=== PATIENT | male | born 1995 | race Caucasian/White ===

== ENCOUNTER 2016-09-26 03:53 | Emergency (ER) | payer OTHER ==
[~2016-09-26] VITALS: Ht 154.9 cm; Wt 68.0 kg
[2016-09-26 03:57] VITALS: Ht 154.9 cm; Wt 68.0 kg
[2016-09-26] MEDS ORDERED: ONDANSETRON 4 MG INJ IV STA (06:35)
[2016-09-26] MEDS ORDERED: ACETAMINOPHEN 325 MG TAB PO ONE (07:00)
[2016-09-26] MEDS ORDERED: ONDANSETRON (ODT) 4 MG TAB ODT STA (07:08)
--- NOTE | 2016-09-26 07:20 | RADRPT ---
PROCEDURE: US OB. CLINICAL INDICATION: Vaginal bleeding status post miscarriage. TECHNIQUE: Transabdominal imaging of the uterus is available for review. The patient refused endo vaginal imaging COMPARISON: None available FINDINGS: No intrauterine is identified. The endometrial stripe is heterogeneous and measures 11 mm in thickness. The uterus is otherwise unremarkable. The ovaries are unremarkable. No adnexal mas s is identified. No free fluid is noted within the pelvis. IMPRESSION: Limited evaluation. The patient refused endovaginal imaging. The endometrium is thickened measurin g 11 mm in diameter and heterogeneous. Correlation with Beta HCG is recommended to exclude retained products of conception. RPTAT: HH .Vivien Overton MD, MD Date Time Electronically viewed and signed by .Vivien Overton MD, on 09/26/2016 07:20 .G/
[2016-09-26 07:38] LABS: ADD SCAN DIFF NO
[2016-09-26 07:42] LABS: BASOPHILS % 0.3 % (0.0-2.0); EOSINOPHILS % 0.3 % (0.0-7.0); HEMATOCRIT 40.6 % (42.0-52.0); HEMOGLOBIN 13.4 g/dl (14.0-18.0); LYMPHOCYTES # 1.8 10^3/ul (0.8-2.9); LYMPHOCYTES % 28.2 % (15.0-51.0); MEAN CORPUSCULAR HEMOGLOBIN 31.2 pg (29.0-33.0); MEAN CORPUSCULAR VOLUME 94.4 fl (82.0-101.0); MEAN PLATELET VOLUME 8.4 fl (7.4-10.4); MONOCYTE # 0.3 10^3/ul (0.3-0.9); MONOCYTES % 5.2 % (0.0-11.0); NEUTROPHIL # 4.2 10^3/ul (1.6-7.5); NEUTROPHILS % 65.7 % (39.0-77.0); PLATELET COUNT 373 10^3/UL (140-415); RED CELL DISTRIBUTION WIDTH 12.6 % (11.5-14.5); WHITE BLOOD COUNT 6.4 10^3/ul (4.8-10.8)
[2016-09-26 07:45] LABS: ADD UMIC YES; URINE BILIRUBIN (Dip) NEGATIVE (NEGATIVE); URINE BLOOD (Dip) 3+ (NEGATIVE); URINE COLOR LT. YELLOW (YELLOW); URINE GLUCOSE (Dip) NEGATIVE (NEGATIVE); URINE KETONES (Dip) NEGATIVE (NEGATIVE); URINE LEUKOCYTE ESTERASE (Dip) NEGATIVE (NEGATIVE); URINE NITRITE (Dip) NEGATIVE (NEGATIVE); URINE TOTAL PROTEIN (Dip) NEGATIVE (NEGATIVE); URINE UROBILINOGEN (Dip) 0.2 E.U./dL (0.1-1.0)
[2016-09-26 08:08] LABS: BACTERIA,URINE RARE; URINE RBCS 0-2 /HPF (0)
[2016-09-26] MEDS ORDERED: ONDA4TAB8 PO (08:33)
[2016-09-26] MEDS ORDERED: IBUP-1542 PO (08:33)
--- NOTE | 2016-09-26 11:45 | ERD ---
ER Documentation Chief Complaint Date/Time DATE: 09/26/16 TIME: 11:36 Chief Complaint PELVIC PAIN AND VAG BLEED HAD A MISCARRIAGE 2 DAYS AGO HPI This is a 20-year-old female accompanied by her , presented with abdominal pain and vaginal bleeding for 2 weeks. Patient is , states that she had a miscarriage 2 days ago at home while she was on her eighth week of gestation. Patient stated she was able to visualize the tissue during the miscarriage. Patient then went to [facility]. Patient did not bring any hospital records on this ED visit. She reports of vaginal bleeding of 1 pad per day. Patient also complains of nausea and dysuria. No recent history of fever, headache, chest pain, shortness of breath or bowel symptoms. Patient is currently taking [place] for abdominal pain, last dose was yesterday. ROS All systems reviewed and are negative except as per history of present illness. Medications Home Meds Active Scripts Ibuprofen* (Motrin*) 600 Mg Tab, 600 MG PO Q6H Y for PAIN AND OR ELEVATED TEMP, #30 TAB Prov:RAJIV METZ 09/26/16 Ondansetron Hcl* (Zofran*) 4 Mg Tablet, 4 MG PO Q6H for NAUSEA AND/OR VOMITING, #30 TAB Prov:RAJIV METZ 09/26/16 Allergies Allergies: Coded Allergies: No Known Allergy (Unverified , 09/26/16) PMhx/Soc History of Surgery: No Anesthesia Reaction: No Hx Neurological Disorder: No Hx Respiratory Disorders: No Hx Cardiac Disorders: No Hx Psychiatric Problems: No Hx Alcohol Use: Yes (WEEKENDS) Hx Substance Use: No Smoking Status: Never smoker Physical Exam Vitals Vital Signs Date Time Temp Pulse Resp B/P Pulse Ox O2 Delivery O2 Flow Rate FiO2 09/26/16 03:57 97.7 78 20 109/68 100 Physical Exam Physical Exam CONST: Well-developed, well-nourished, in no acute distress. Nontoxic in appearance. HEENT: Atraumatic. Normal conjunctiva. EOM intact. TM intact. External ear is normal. Clear oropharnyx without erythema. No uvular deviation. Moist mucous membranes. Supple neck. No meningismus. No submandibular induration. RESP: Clear to auscultation bilaterally. No wheezing. CARDIO: Regular rate and rhythm, no murmurs. ABD: Lower abdominal tenderness. Soft, non distended. Normal bowel sounds. No McBurney's point tenderness. No guarding or rigidity. No peritoneal signs. SKIN: No petechiae or rashes. BACK: No midline or flank tenderness. EXT: No cyanosis or edema. Distal pulses equal and bilateral. NEURO: Awake and alert, appropriate for age. Result Diagram: 09/26/16 0714 Results 24 hrs Laboratory Tests Test 09/26/16 07:07 09/26/16 07:14 Urine Color LT. YELLOW Urine Clarity CLEAR Urine pH 5.5 Urine Specific [place] 1.015 Urine Ketones NEGATIVE Urine Nitrite NEGATIVE Urine Bilirubin NEGATIVE Urine Urobilinogen 0.2 E.U./dL Urine Leukocyte Esterase NEGATIVE Urine Microscopic RBC 0-2/HPF Urine Microscopic WBC 0-2/HPF Urine Epithelial Cells FEW Urine Bacteria RARE Urine Hemoglobin 3+ Urine Glucose NEGATIVE% Urine Total Protein NEGATIVE White Blood Count 6.410^3/ul Red Blood Count 4.3010^6/ul Hemoglobin 13.4g/dl Hematocrit 40.6% Mean Corpuscular Volume 94.4fl Mean Corpuscular Hemoglobin 31.2pg Mean Corpuscular Hemoglobin Concent 33.0g/dl Red Cell Distribution Width 12.6% Platelet Count 66181^3/UL Mean Platelet Volume 8.4fl Neutrophils % 65.7% Lymphocytes % 28.2% Monocytes % 5.2% Eosinophils % 0.3% Basophils % 0.3% Nucleated Red Blood Cells % 0.0/100WBC Neutrophils # 4.210^3/ul Lymphocytes # 1.810^3/ul Monocytes # 0.310^3/ul Eosinophils # 0.010^3/ul Basophils # 0.010^3/ul Nucleated Red Blood Cells # 0.010^3/ul Beta HCG, Quantitative 382.2mIU/ml Current Medications Medications (Trade) Dose Ordered Sig/Alonzo Route PRN Reason Start Time Stop Time Status Last Admin Dose Admin Ondansetron HCl (Zofran Inj) 4 mg ONCE STAT IV 09/26/16 06:35 09/26/16 07:09 DC Acetaminophen (Tylenol Tab) 650 mg ONCE ONCE PO 09/26/16 07:00 09/26/16 07:01 DC 09/26/16 07:12 Ondansetron HCl (Zofran Odt) 4 mg ONCE STAT ODT 09/26/16 07:08 09/26/16 07:09 DC 09/26/16 07:14 PROCEDURE: US OB. CLINICAL INDICATION: Vaginal bleeding status post miscarriage. TECHNIQUE: Transabdominal imaging of the uterus is available for review. The patient refused endovaginal imaging COMPARISON: None available FINDINGS: No intrauterine is identified. The endometrial stripe is heterogeneous and measures 11 mm in thickness. The uterus is otherwise unremarkable. The ovaries are unremarkable. No adnexal mass is identified. No free fluid is noted within the pelvis. IMPRESSION: Limited evaluation. The patient refused endovaginal imaging. The endometrium is thickened measuring 11 mm in diameter and heterogeneous. Correlation with Beta HCG is recommended to exclude retained products of conception. Procedures/MDM EMERGENCY DEPARTMENT COURSE/MEDICAL DECISION MAKING This is a 20-year-old female who comes to the emergency room secondary to complaints of lower abdominal pain and vaginal bleeding status post miscarriage 2 days ago. The patient was given Tylenol and Zofran in the department. On re-evaluation, the patient's symptoms improved. OB ultrasound was done and was interpreted by a radiologist. Results are limited because patient refused endovaginal imaging. The endometrium is thickened measuring 11 mm in diameter and heterogeneous. Hemoglobin and hematocrit levels are stable and patient does not require any blood transfusion. Beta hCG is 282.2, patient does not have any baseline level on record. Case was discussed with Dr. Graves and we agreed to discharge patient home and return in 2 days for a repeat beta hCG level. My primary diagnosis is vaginal bleeding. Secondary diagnosis is nausea Differential diagnoses considered but not limited to acute appendicitis, diverticulitis, pancreatitis, cholecystitis, gastritis, pyelonephritis, UTI, constipation, inflammatory bowel disease, ectopic , ovarian torsion. Pt is hemodynamically stable upon reassessment. The patient was discharged for outpatient management with a prescription for ibuprofen and Zofran. The patient was advised to followup with their PMD in 1-2 days and to return to the Emergency Department if there are any new or worsening symptoms. The patient understood and agreed with the diagnosis, treatment and plan. Patient is stable for discharge at this time. Departure Diagnosis: Primary Impression: Vaginal bleeding Additional Impression: Nausea Condition: Stable Patient Instructions: Vaginal Bleed in Referrals: COMMUNITY CLINICS YOU HAVE RECEIVED A MEDICAL SCREENING EXAM AND THE RESULTS INDICATE THAT YOU DO NOT HAVE A CONDITION THAT REQUIRES URGENT TREATMENT IN THE EMERGENCY DEPARTMENT. FURTHER EVALUATION AND TREATMENT OF YOUR CONDITION CAN WAIT UNTIL YOU ARE SEEN IN YOUR DOCTORS OFFICE WITHIN THE NEXT 1-2 DAYS. IT IS YOUR RESPONSIBILITY TO MAKE AN APPOINTMENT FOR FOLOW-UP CARE. IF YOU HAVE A PRIMARY DOCTOR --you should call your primary doctor and schedule an appointment IF YOU DO NOT HAVE A PRIMARY DOCTOR YOU CAN CALL OUR PHYSICIAN REFERRAL HOTLINE AT IF YOU CAN NOT AFFORD TO SEE A PHYSICIAN YOU CAN CHOSE FROM THE FOLLOWING [facility] [address] [facility] [address] [facility]. [facility] [address] [facility] [address] [facility] [facility] [address] [facility] [facility] [address] [facility]. [facility] YOU HAVE RECEIVED A MEDICAL SCREENING EXAM AND THE RESULTS INDICATE THAT YOU DO NOT HAVE A CONDITION THAT REQUIRES URGENT TREATMENT IN THE EMERGENCY DEPARTMENT. FURTHER EVALUATION AND TREATMENT OF YOUR CONDITION CAN WAIT UNTIL YOU ARE SEEN IN YOUR DOCTORS OFFICE WITHIN THE NEXT 1-2 DAYS. IT IS YOUR RESPONSIBILITY TO MAKE AN APPOINTMENT FOR FOLOW-UP CARE. IF YOU HAVE A PRIMARY DOCTOR --you should call your primary doctor and schedule and appointment IF YOU DO NOT HAVE A PRIMARY DOCTOR YOU CAN CALL OUR PHYSICIAN REFERRAL HOTLINE AT . IF YOU CAN NOT AFFORD TO SEE A PHYSICIAN YOU CAN CHOSE FROM THE FOLLOWING PENDING SALE TO [facility]: [facility] [address] [place] [address] [facility] [address] [place] [address] [facility] [address] [place] [address] [employer] [place] [address] [facility] [address] [place] [address] OFFICE FAX [facility] [address] [place] [phone] SUGGS, [place] [address] [place] [address] [address] GONZALEZ, [facility] [address], [facility] [address] [address]ORRES, [facility] [address] [facility] [place] [address] [facility] [address] [place] [address] [address] [facility] [id number] [address] [facility] [address] [address]ARCUS, [facility] [address] [facility]. [address], [facility] [address] [address] [facility] [address] [place], [place] [id number] Additional Instructions: Return in 2 days for beta hCG recheck. Call your primary care doctor tomorrow for an appointment during the next 1-2 days. Return to the emergency department immediately should you have any new or worsening symptoms. Take all medications as directed. RAJIV METZ Sep 26, 2016 11:45
== END 2016-09-26 08:53 | disposition home or self-care (01) ==
LOC: FTE 03:53
DX: N93.9 Abnormal uterine and vaginal bleeding, unspecified (principal); R11.0 Nausea; R10.2 Pelvic and perineal pain
CPT/HCPCS: 36415; 76801; 81001; 81003; 84702; 85025; 86900; 86901; Z7502; Z7610; J2405

== ENCOUNTER 2017-03-08 10:53 | Emergency (ER) | payer OTHER ==
[~2017-03-08] VITALS: Ht 157.5 cm; Wt 70.0 kg
[~2017-03-08 10:53] MED LIST: IBUP-1542 PO; ONDA4TAB8 PO
[2017-03-08 10:55] VITALS: Ht 157.5 cm; Wt 70.0 kg
[2017-03-08] MEDS ORDERED: ONDANSETRON (ODT) 4 MG TAB ODT STA (11:18)
[2017-03-08] MEDS ORDERED: RANITIDINE 150 MG TAB PO ONE (11:30)
[2017-03-08] MEDS ORDERED: LIDOCAINE/MYLANTA 40 ML BTL PO ONE (11:30)
[2017-03-08] MEDS ORDERED: OMEP20CA16 PO (11:50)
[2017-03-08] MEDS ORDERED: ONDA4TAB14 PO (11:50)
[2017-03-08] MEDS ORDERED: RANI150T9 PO (11:51)
--- NOTE | 2017-03-08 12:10 | ERD ---
ER Documentation Chief Complaint Date/Time DATE: 03/08/17 TIME: 12:05 Chief Complaint Complains of abdominal pain x 3 days HPI This patient is a 21-year-old female presenting to the emergency department with complaints of abdominal cramping intermittently for the past 2 days. She states that when the cramps come they last for about 5 minutes and then resolve spontaneously. She states it may be related to her menstrual cycle. She reports diffuse cramping slightly worse in the midepigastric area. She does state she feels a burning sensation that travels up her esophagus and is associated with nausea but she has not vomited. Symptoms are worse with fatty foods. She has had similar symptoms in the past. She denies vomiting, diarrhea , dizziness, fever, chills, urinary symptoms, or other symptoms at this time. ROS All systems reviewed and are negative except as per history of present illness. Medications Home Meds Active Scripts Ranitidine Hcl* (Zantac*) 150 Mg Tablet, 150 MG PO BID Y for EPIGASTRIC PAIN, # 30 TAB Prov:MARA JOLLEY PA-C 03/08/17 Omeprazole* (Omeprazole*) 20 Mg Capsule.dr, 20 MG PO DAILY, #14 Prov:MARA JOLLEY PA-C 03/08/17 Ondansetron (Ondansetron Odt) 4 Mg Tab.rapdis, 4 MG PO Q6H Y for NAUSEA AND/OR VOMITING, #10 TAB Prov:MARA JOLLEY PA-C 03/08/17 Ibuprofen* (Motrin*) 600 Mg Tab, 600 MG PO Q6H Y for PAIN AND OR ELEVATED TEMP, #30 TAB Prov:RAJIV METZ 09/26/16 Ondansetron Hcl* (Zofran*) 4 Mg Tablet, 4 MG PO Q6H for NAUSEA AND/OR VOMITING, #30 TAB Prov:RAJIV METZ 09/26/16 Allergies Allergies: Coded Allergies: No Known Allergy (Unverified , 09/26/16) PMhx/Soc Medical and Surgical Hx: pt denies Medical Hx, pt denies Surgical Hx History of Surgery: No Anesthesia Reaction: No Hx Neurological Disorder: No Hx Respiratory Disorders: No Hx Cardiac Disorders: No Hx Psychiatric Problems: No Hx Alcohol Use: Yes (WEEKENDS socially) Hx Substance Use: No Hx Tobacco Use: No Smoking Status: Never smoker Physical Exam Vitals Vital Signs Date Time Temp Pulse Resp B/P Pulse Ox O2 Delivery O2 Flow Rate FiO2 03/08/17 10:55 98.6 89 20 132/73 98 Physical Exam Const: Nontoxic, well-appearing female in no acute distress Head: Atraumatic Eyes: Normal Conjunctiva ENT: Normal External Ears, Nose and Mouth. Neck: Full range of motion..~ No meningismus. Resp: Clear to auscultation bilaterally Cardio: Regular rate and rhythm, no murmurs Abd: Soft, non tender, non distended. Normal bowel sounds. No signs of gross peritonitis. Negative McBurney's point tenderness. Negative Nye sign. No rebound tenderness or guarding noted. Skin: No petechiae or rashes Back: No midline or flank tenderness Ext: No cyanosis, or edema Neur: Awake and alert Psych: Normal Mood and Affect Results 24 hrs Current Medications Medications (Trade) Dose Ordered Sig/Alonzo Route PRN Reason Start Time Stop Time Status Last Admin Dose Admin Miscellaneous Medication (Gi Cocktail (2)) 40 ml ONCE ONCE PO 03/08/17 11:30 03/08/17 11:31 DC 03/08/17 11:25 Ranitidine HCl (Zantac) 150 mg ONCE ONCE PO 03/08/17 11:30 03/08/17 11:31 DC 03/08/17 11:31 Ondansetron HCl (Zofran Odt) 4 mg ONCE STAT ODT 03/08/17 11:18 03/08/17 11:20 DC 03/08/17 11:25 Procedures/MDM 21-year-old female presents to the emergency department with vague, diffuse, abdominal cramping. Abdominal physical examination is unremarkable. The patient has no signs of McBurney's point tenderness, rebound tenderness or guarding, Nye sign, or gross peritonitis or other abnormalities. I suspect GERD since the cramping is associated with reflux symptoms and midepigastric pain which is worse with fatty foods. The patient was afebrile with a virtually normal physical examination and I have low suspicion for cholecystitis , appendicitis, bowel obstruction, ischemic bowel, or other acute abdominal surgical emergencies. The patient's symptoms were resolved completely in the department with GI cocktail, Zofran, and ranitidine. She was stable for discharge with prescriptions for Zofran, ranitidine, and omeprazole. She is advised to have close follow-up with her primary care physician within 1-2 days and return immediately for any new or worsening symptoms. Departure Diagnosis: Primary Impression: Epigastric pain Condition: Fair Patient Instructions: Gerd (Adult), Epigastric Pain (Uncertain Cause) Referrals: COMMUNITY CLINICS YOU HAVE RECEIVED A MEDICAL SCREENING EXAM AND THE RESULTS INDICATE THAT YOU DO NOT HAVE A CONDITION THAT REQUIRES URGENT TREATMENT IN THE EMERGENCY DEPARTMENT. FURTHER EVALUATION AND TREATMENT OF YOUR CONDITION CAN WAIT UNTIL YOU ARE SEEN IN YOUR DOCTORS OFFICE WITHIN THE NEXT 1-2 DAYS. IT IS YOUR RESPONSIBILITY TO MAKE AN APPOINTMENT FOR [facility]. IF YOU HAVE A PRIMARY DOCTOR --you should call your primary doctor and schedule an appointment IF YOU DO NOT HAVE A PRIMARY DOCTOR YOU CAN CALL OUR PHYSICIAN REFERRAL HOTLINE AT IF YOU CAN NOT AFFORD TO SEE A PHYSICIAN YOU CAN CHOSE FROM THE FOLLOWING [facility] [address] [facility]. [facility] [address] [facility]. [facility] [address] [facility] [address] [facility]. [facility] [address] [facility]. [facility]. [address] Additional Instructions: Follow up with your PCP within the next 1-3 days for a repeat evaluation. If you require a referral to a specialist, your Primary Care Provider may be able to provide this for you. In most patient cases, a referral is not required. If you have further questions regarding this matter, please ask your Primary Care Provider. Return the the emergency department immediately if symptoms worsen or change. If you have any questions regarding medications, ask your pharmacist or us before you leave. If any adverse reactions, occur while taking your medications, discontinue the treatment and return to the emergency department immediately. If any new or worsening symptoms, uncontrolled fevers, or other unexplained symptoms occur, return to the emergency department immediately. Take your medications as directed, and complete the entire course of treatment. MARA JOLLEY PA-C Mar 08, 2017 12:10
[2017-03-08 12:12] VITALS: BP 118/65; PULSE 75; RESP 19; TEMP 98.2
== END 2017-03-08 12:13 | disposition home or self-care (01) ==
LOC: EDSEX 10:53 → FTE 10:53
DX: R10.13 Epigastric pain (principal); R11.0 Nausea
CPT/HCPCS: Z7502; Z7610; 99283

== ENCOUNTER 2017-03-13 20:14 | Emergency (ER) | payer OTHER ==
[~2017-03-13] VITALS: Ht 154.9 cm; Wt 71.0 kg
[~2017-03-13 20:14] MED LIST changes: +OMEP20CA16 PO; +ONDA4TAB14 PO; +RANI150T9 PO
[2017-03-13 21:07] VITALS: Ht 154.9 cm; Wt 71.0 kg
[2017-03-13] MEDS ORDERED: HYDROCODONE/APAP (5/325) TAB PO ONE (23:00)
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
--- NOTE | 2017-03-13 23:58 | RADRPT ---
PROCEDURE: XR Chest. CLINICAL INDICATION: Chest wall pain. TECHNIQUE: Single frontal view. COMPARISON: None. FINDINGS: The lungs are clear. The heart size is normal. There is no pleural effusion. There is no pneumothorax. IMPRESSION: 1. Normal chest radiograph. RPTAT: QQ .Garrick Carrillo MD, Date Time Electronically viewed and signed by .Garrick Carrillo MD, on 03/13/2017 23:57 .R/
[2017-03-14 00:42] LABS: ADD UMIC NO; UR ASCORBIC ACID NEGATIVE (NEGATIVE); UR BILIRUBIN (Dip) NEGATIVE (NEGATIVE); UR BLOOD (Dip) NEGATIVE (NEGATIVE); UR CLARITY CLEAR (CLEAR); UR COLOR COLORLESS (YELLOW); UR GLUCOSE (Dip) NEGATIVE (NEGATIVE); UR KETONES (Dip) NEGATIVE (NEGATIVE); UR LEUKOCYTE ESTERASE (Dip) NEGATIVE Leu/ul (NEGATIVE); UR NITRITE (Dip) NEGATIVE (NEGATIVE); UR SPECIFIC GRAVITY (Dip) 1.001 (1.003-1.030); UR TOTAL PROTEIN (Dip) NEGATIVE (NEGATIVE); UR UROBILINOGEN (Dip) NEGATIVE (NEGATIVE)
[2017-03-14] MEDS ORDERED: HYDR-906 PO (00:53)
[2017-03-14] MEDS ORDERED: ACET500C5 PO (00:53)
[2017-03-14] MEDS ORDERED: CYCL-319 PO (00:53)
== END 2017-03-14 01:09 | disposition home or self-care (01) ==
LOC: FTE 20:14
DX: S30.1XXA Contusion of abdominal wall, initial encounter (principal); S20.219A Contusion of unspecified front wall of thorax, initial encounter; S16.1XXA Strain of muscle, fascia and tendon at neck level, initial encounter; S39.012A Strain of muscle, fascia and tendon of lower back, initial encounter; V49.50XA Passenger injured in collision with unspecified motor vehicles in traffic accident, initial encounter
CPT/HCPCS: 71010; 72125; 72128; 76705; 81003; Z7502; Z7610

== ENCOUNTER 2017-04-22 09:31 | Emergency (ER) | payer OTHER ==
[~2017-04-22] VITALS: Wt 69.1 kg
[~2017-04-22 09:31] MED LIST changes: +ACET500C5 PO; +CYCL-319 PO; +HYDR-906 PO
[2017-04-22] MEDS ORDERED: ACETAMINOPHEN 500 MG TAB PO STA (09:59)
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
[2017-04-22] MEDS ORDERED: ACET500C5 PO (10:58)
[2017-04-22 11:26] VITALS: TEMP 98.2
== END 2017-04-22 11:26 | disposition home or self-care (01) ==
LOC: FTE 09:31
DX: S69.92XA Unspecified injury of left wrist, hand and finger(s), initial encounter (principal); W18.39XA Other fall on same level, initial encounter; Y92.9 Unspecified place or not applicable
CPT/HCPCS: 29130; 73130; Z7502; Z7610

== ENCOUNTER 2017-04-24 20:05 | Emergency (ER) | payer SELFPAY ==
[~2017-04-24] VITALS: Ht 175.3 cm; Wt 70.9 kg
[2017-04-24 20:14] VITALS: Ht 175.3 cm; Wt 70.9 kg
[2017-04-25] MEDS ORDERED: IBUP800T25 PO (05:45)
[2017-04-25] MEDS ORDERED: TRAM-40 PO (05:45)
== END 2017-04-25 00:01 | disposition left against medical advice (07) ==
LOC: FTE 20:05
DX: Z53.21 Procedure and treatment not carried out due to patient leaving prior to being seen by health care provider (principal)

== ENCOUNTER 2017-04-25 05:26 | Emergency (ER) | payer OTHER ==
[~2017-04-25] VITALS: Ht 154.9 cm; Wt 71.4 kg
[2017-04-25 05:31] VITALS: Ht 154.9 cm; Wt 71.4 kg
[2017-04-25] MEDS ORDERED: TRAM-40 PO (05:45)
[2017-04-25] MEDS ORDERED: IBUP800T25 PO (05:45)
--- NOTE | 2017-04-25 05:48 | ERD ---
ER Documentation Chief Complaint Chief Complaint head pain r/t fall, left hand pain,took Tylenol at 0230 HPI This is a 21-year-old female who was seen here on the fifth for a mechanical fall and she injured her left hand and also hit her head. She had normal x- rays of her left hand that day but continues to have head pain. She has been taking 200 mg of Tylenol but is not helping. She did not lose consciousness. No vomiting. No visual changes. No new injuries. ROS All systems reviewed and are negative except as per history of present illness. Medications Home Meds Active Scripts Tramadol Hcl* (Ultram*) 50 Mg Tablet, 50 MG PO Q6H Y for PAIN, #20 TAB Prov:CHICO GUPTA PA-C 04/25/17 Ibuprofen* (Motrin*) 800 Mg Tab, 800 MG PO Q6, #30 TAB Prov:CHICO GUPTA PA-C 04/25/17 Acetaminophen* (Tylophen*) 500 Mg Capsule, 1 CAP PO Q6H Y for PAIN AND OR ELEVATED TEMP, #30 CAP Prov:MECCA ADAMS PA-C 04/22/17 Cyclobenzaprine Hcl* (Cyclobenzaprine Hcl*) 10 Mg Tablet, 10 MG PO TID, #15 TAB Prov:PERFECTO MANCINI NP 03/14/17 Hydrocodone/Acetaminophen ([place] 5-325 Tablet) 1 Each Tablet, 1 TAB PO Q6H Y for SEVERE PAIN LEVEL 7-10, #20 TAB Prov:PERFECTO MANCINI NP 03/14/17 Acetaminophen* (Tylophen*) 500 Mg Capsule, 1 CAP PO Q6H Y for PAIN AND OR ELEVATED TEMP, #20 CAP Prov:PERFECTO MANCINI NP 03/14/17 Ranitidine Hcl* (Zantac*) 150 Mg Tablet, 150 MG PO BID Y for EPIGASTRIC PAIN, # 30 TAB Prov:MARA JOLLEY PA-C 03/08/17 Omeprazole* (Omeprazole*) 20 Mg Capsule.dr, 20 MG PO DAILY, #14 Prov:MARA JOLLEY PA-C 03/08/17 Ondansetron (Ondansetron Odt) 4 Mg Tab.rapdis, 4 MG PO Q6H Y for NAUSEA AND/OR VOMITING, #10 TAB Prov:SAMREENMARA Rekha HEARD 03/08/17 Ibuprofen* (Motrin*) 600 Mg Tab, 600 MG PO Q6H Y for PAIN AND OR ELEVATED TEMP, #30 TAB Prov:RAJIV METZ 09/26/16 Ondansetron Hcl* (Zofran*) 4 Mg Tablet, 4 MG PO Q6H for NAUSEA AND/OR VOMITING, #30 TAB Prov:RAJIV METZ 09/26/16 Allergies Allergies: Coded Allergies: No Known Allergy (Unverified , 04/22/17) PMhx/Soc History of Surgery: No Anesthesia Reaction: No Hx Neurological Disorder: No Hx Respiratory Disorders: No Hx Cardiac Disorders: No Hx Psychiatric Problems: No Hx Alcohol Use: No Hx Substance Use: No Hx Tobacco Use: No FmHx Family History: No diabetes Physical Exam Vitals Vital Signs Date Time Temp Pulse Resp B/P Pulse Ox O2 Delivery O2 Flow Rate FiO2 04/25/17 05:31 97.6 82 18 122/69 97 Physical Exam INITIAL VITAL SIGNS: Reviewed by me GENERAL: Awake, alert and oriented x 4, well appearing, nontoxic, speaking in full sentences. No acute distress HEAD: Atraumatic NECK: Supple. No masses. Full range of motion. No meningismus. No midline tenderness. EYES: EOMI. PERRL. RESPIRATORY: Clear to auscultation bilaterally. Symmetric chest wall rise. No wheezing or rales. No accessory muscle use. CV: Regular rate and rhythm. No murmurs, rubs, or gallops. NEUROLOGIC: Normal mental status and speech. Face is symmetric. Moves all extremities equally. Motor and sensory distally intact. Normal coordination. Ambulates with a strong steady gait. 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 She now has had pain. However she did not lose consciousness, she has no vomiting. Her neurological examination is normal. I doubt she is a CT scan and I explained the risks and benefits of CT scan and she agrees. However she did well today with a stronger for pain so I gave her Motrin 800 as well as a small amount of tramadol. Patient counseled regarding my diagnostic impression and care plan. Prior to discharge all questions answered. Pt agrees with treatment plan and understands strict return precautions. Pt is instructed to follow up with primary care provider within 24- 48 hours. Precautionary instructions provided including instructions to return to the ER if not improving or for any worsening or changing symptoms or concerns. Departure Diagnosis: Primary Impression: Head injury Additional Impression: Fall Condition: Stable Patient Instructions: HEAD INJURY with Wake-Up (Adult) Additional Instructions: Call your primary care doctor TOMORROW for an appointment during the next 1-2 days.See the doctor sooner or return here if your condition worsens before your appointment time. CHICO GUPTA PA-C Apr 25, 2017 05:48
== END 2017-04-25 06:00 | disposition home or self-care (01) ==
LOC: FTE 05:26
DX: S09.90XD Unspecified injury of head, subsequent encounter (principal); W01.198D Fall on same level from slipping, tripping and stumbling with subsequent striking against other object, subsequent encounter
CPT/HCPCS: 99283

== ENCOUNTER 2017-07-27 05:30 | Emergency (ER) | END 2017-07-27 07:19 | disposition home or self-care (01) ==

== ENCOUNTER 2017-12-09 15:35 | Emergency (ER) | END 2017-12-09 19:54 | disposition home or self-care (01) ==

== ENCOUNTER 2017-12-17 21:29 | Emergency (ER) | END 2017-12-18 04:23 | disposition home or self-care (01) ==

== ENCOUNTER 2018-02-10 05:58 | Emergency (ER) | END 2018-02-10 08:10 | disposition home or self-care (01) ==

== ENCOUNTER 2018-02-12 14:55 | Emergency (ER) | END 2018-02-12 19:40 | disposition left against medical advice (07) ==

== ENCOUNTER 2018-02-21 06:55 | Emergency (ER) | END 2018-02-21 08:55 | disposition home or self-care (01) ==

== ENCOUNTER 2018-05-17 15:02 | Outpatient (CLI) | END 2018-05-17 17:20 | disposition home or self-care (01) ==

== ENCOUNTER 2018-08-11 09:49 | Emergency (ER) | payer OTHER ==
[~2018-08-11] VITALS: Ht 160 cm; Wt 77.4 kg
[~2018-08-11 09:49] MED LIST changes: -ACET500C5 PO; -CYCL-319 PO; -HYDR-906 PO; -IBUP-1542 PO; -OMEP20CA16 PO; -ONDA4TAB14 PO; -ONDA4TAB8 PO; +PREN-93 PO; -RANI150T9 PO
[2018-08-11 09:51] VITALS: BP 132/74; PULSE 97; RESP 18; Ht 160 cm; Wt 77.4 kg
--- NOTE | 2018-08-11 10:45 | ERD ---
ER Documentation Chief Complaint Chief Complaint cough and fever x 1 week HPI 2-week female presents with history of cough and fever as well as chills for the past week. Patient states that the fever went up to 100 chills are worse at night. States that he was uncomplicated and was vaginal. In addition she states that she has some dysuria but denies hematuria. States the dysuria is most likely due to catheter. Denies chest pain, lwheezing eg swelling,, shortness of breath. Denies abdominal pain, vaginal discharge, flank pain, back pain, nausea vomiting or diarrhea. Denies past medical history. Denies allergies. Denies medications. Denies surgeries. Denies alcohol, tobacco, drug use. Up to date on vaccines. ROS All systems reviewed and are negative except as per history of present illness. Medications Home Meds Active Scripts Cephalexin* (Keflex*) 500 Mg Capsule, 500 MG PO BID for UTI for 7 Days, CAP Prov:MARA OLIVER 08/11/18 Vit No.124/Iron/FA ( Vitamin Tablet) 1 Each Tablet, 1 EACH PO DAILY, #30 TAB Prov:JUAN DIEGO ESTRELLA 02/10/18 Allergies Allergies: Coded Allergies: No Known Allergy (Unverified , 07/18/18) PMhx/Soc History of Surgery: Yes (1Right Rib removed d/t small tumor) Anesthesia Reaction: No Hx Neurological Disorder: No Hx Respiratory Disorders: No Hx Cardiac Disorders: No Hx Psychiatric Problems: No Hx Miscellaneous Medical Probl: Yes (miscarriage) Hx Alcohol Use: No Hx Substance Use: No Hx Tobacco Use: No Smoking Status: Never smoker FmHx Family History: No diabetes, No coronary disease, No other Physical Exam Vitals Vital Signs Date Temp Pulse Resp B/P (MAP) Pulse Ox O2 O2 Flow FiO2 Time Delivery Rate 08/11/18 98.5 97 18 132/74 98 09:51 (93) Physical Exam Const: No acute distress Head: Atraumatic Eyes: Normal Conjunctiva ENT: Normal External Ears, Nose and Mouth. Throat is nonerythematous and nonedematous with uvula midline. Neck: Full range of motion. No meningismus. Resp: Clear to auscultation bilaterally Cardio: Regular rate and rhythm, no murmurs Abd: Soft, non tender, non distended. Normal bowel sounds Skin: No petechiae or rashes Back: No midline or flank tenderness Ext: No cyanosis, or edema. No erythema or tenderness to palpation in the l ower extremities. Neur: Awake and alert Psych: Normal Mood and Affect Result Diagram: 08/11/18 1029 08/11/18 1029 Results 24 hrs Laboratory Tests Test 08/11/18 10:29 White Blood Count 6.2 10^3/ul Red Blood Count 4.83 10^6/ul Hemoglobin 14.6 g/dl Hematocrit 44.4 % Mean Corpuscular Volume 91.9 fl Mean Corpuscular Hemoglobin 30.2 pg Mean Corpuscular Hemoglobin Concent 32.9 g/dl Red Cell Distribution Width 13.6 % Platelet Count 325 10^3/UL Mean Platelet Volume 8.2 fl Immature Granulocytes % 0.600 % Neutrophils % 66.3 % Lymphocytes % 21.9 % Monocytes % 10.3 % Eosinophils % 0.6 % Basophils % 0.3 % Nucleated Red Blood Cells % 0.0 /100WBC Immature Granulocytes # 0.040 10^3/ul Neutrophils # 4.1 10^3/ul Lymphocytes # 1.4 10^3/ul Monocytes # 0.6 10^3/ul Eosinophils # 0.0 10^3/ul Basophils # 0.0 10^3/ul Nucleated Red Blood Cells # 0.0 10^3/ul Urine Color STRAW Urine Clarity CLEAR Urine pH 6.0 Urine Specific [place] 1.005 Urine Ketones NEGATIVE mg/dL Urine Nitrite NEGATIVE mg/dL Urine Bilirubin NEGATIVE mg/dL Urine Urobilinogen NEGATIVE mg/dL Urine Leukocyte Esterase 2+ Colby/ul Urine Microscopic RBC 3 /HPF Urine Microscopic WBC 13 /HPF Urine Squamous Epithelial Cells FEW /HPF Urine Bacteria FEW /HPF Urine Hemoglobin 1+ mg/dL Urine Glucose NEGATIVE mg/dL Urine Total Protein NEGATIVE mg/dl Sodium Level 138 mmol/L Potassium Level 4.2 mmol/L Chloride Level 103 mmol/L Carbon Dioxide Level 28 mmol/L Anion Gap 7 Blood Urea Nitrogen 7 mg/dl Creatinine 0.64 mg/dl Est Glomerular Filtrat Rate mL/min > 60 mL/min Glucose Level 100 mg/dl Calcium Level 9.4 mg/dl Total Bilirubin 0.3 mg/dl Direct Bilirubin 0.00 mg/dl Indirect Bilirubin 0.3 mg/dl Aspartate Amino Transf (AST/SGOT) 127 IU/L Alanine Aminotransferase (ALT/SGPT) 135 IU/L Alkaline Phosphatase 157 IU/L Total Protein 7.4 g/dl Albumin 4.0 g/dl Globulin 3.40 g/dl Albumin/Globulin Ratio 1.17 Monoscreen Negative Procedures/MDM DIAGNOSTIC IMAGING REPORT Patient: MALOU LUONG : 1995 Age: 22 Sex: F MR #: [id number] DOS: 08/11/18 1020 Ordering MD: MARA OLIVER Location: [facility] Room/Bed: PROCEDURE: XR Chest. CLINICAL INDICATION: cough TECHNIQUE: Single frontal view of the chest was obtained COMPARISON: None FINDINGS: The heart and mediastinum are within normal limits. The lungs are clear. There is no pleural effusion or pneumothorax. RPTAT: AA IMPRESSION: No acute disease. .Jimbo Pires MD, MD Date Time Electronically viewed and signed by .Jimbo Pires MD, MD on 08/11/2018 11:51 .S/ CC: MARA OLIVER [phone] ER course: Influenza - neg, UA- pos UTI. chest x-ray - WNL. CBC, CMP, Monospot - neg 2-week female presents with history of cough and fever as well as chills for the past week. Patient states that the fever went up to 100 chills are worse at night. States that he was uncomplicated and was vaginal. In addition she states that she has some dysuria but denies hematuria. States the dysuria is most likely due to catheter. Denies chest pain, wheezing eg swelling,, shortness of breath. Denies abdominal pain, vaginal discharge, flank pain, back pain, nausea vomiting or diarrhea. I have low suspicion for strep throat based on history and exam findings, as well as patient not meeting centor criteria for rapid strep testing. CXR, monospot, and infuenza were all WNL. UA was positive for UTI. I have low suspicion for bacterial sinusitis, pneumonia, tuberculosis, meningitis, pneumothorax, PE, aspirated foreign body, respiratory distress, acute heart failure or other life threatening etiology based on patient history and exam findings. Most likely etiology is viral URI and UTI. and no further tests are necessary. Patient given rx for keflex. Patient advised to rest and stay well hydrated. Patient discharged with strict ER precautions. Patient advised to follow up with PMD. All questions answered at discharge. Departure Diagnosis: Primary Impression: UTI (urinary tract infection) Urinary tract infection type: site unspecified Hematuria presence: without hematuria Qualified Codes: N39.0 - Urinary tract infection, site not specified Additional Impression: URI (upper respiratory infection) URI type: unspecified viral URI Qualified Codes: J06.9 - Acute upper respiratory infection, unspecified Condition: Stable MARA OLIVER Aug 11, 2018 10:45
[2018-08-11] MEDS ORDERED: CEPH-443 PO (11:57)
== END 2018-08-11 12:09 | disposition home or self-care (01) ==
LOC: FTE 09:49
DX: O86.29 Other urinary tract infection following delivery (principal); B96.89 Other specified bacterial agents as the cause of diseases classified elsewhere; O99.53 Diseases of the respiratory system complicating the puerperium; J06.9 Acute upper respiratory infection, unspecified
CPT/HCPCS: 71045; 80053; 81001; 85025; 86308; 87400; Z7502

== ENCOUNTER 2018-11-09 11:25 | Emergency (ER) | payer OTHER ==
[~2018-11-09] VITALS: Wt 83.1 kg
[~2018-11-09 11:25] MED LIST changes: +CEPH-443 PO
[2018-11-09 11:30] VITALS: BP 124/64; PULSE 78; RESP 18
[2018-11-09] MEDS ORDERED: IBUP-1542 PO (11:56)
[2018-11-09] MEDS ORDERED: BENZ1LOZ52 MM (11:56)
--- NOTE | 2018-11-09 12:01 | ERD ---
ER Documentation Chief Complaint Chief Complaint FEVER/SORE THROAT X 2 DAYS HPI Patient is a 22-year-old female who presents the ER for concerns of fever and sore throat x2 days. Patient reports T-max of 100.3 Fahrenheit yesterday. Patient has not taken any medications today. Patient denies any drooling, trismus or hypertension of her neck. Patient also reports nasal congestion. Patient was a dry cough. Patient denies nausea, vomiting, vomiting, neck pain, neck stiffness. Patient states her child is also sick. No recent travel. ROS All systems reviewed and are negative except as per history of present illness. Medications Home Meds Active Scripts Benzocaine/Menthol* (Cepacol* Sore Throat Lozenges) 1 Each Lozenge, 1 EACH MM q2h PRN for SORE THROAT, #20 [place] Prov:DELORES FONG PA-C 11/09/18 Ibuprofen* (Motrin*) 600 Mg Tab, 600 MG PO Q6, #30 TAB Prov:DELORES FONG PA-C 11/09/18 Cephalexin* (Keflex*) 500 Mg Capsule, 500 MG PO BID for UTI for 7 Days, CAP Prov:MARA OLIVER 08/11/18 Vit No.124/Iron/FA ( Vitamin Tablet) 1 Each Tablet, 1 EACH PO DAILY, #30 TAB Prov:JUAN DIEGO ESTRELLA 02/10/18 Allergies Allergies: Coded Allergies: No Known Allergy (Unverified , 07/18/18) PMhx/Soc History of Surgery: Yes (1Right Rib removed d/t small tumor) Anesthesia Reaction: No Hx Neurological Disorder: No Hx Respiratory Disorders: No Hx Cardiac Disorders: No Hx Psychiatric Problems: No Hx Miscellaneous Medical Probl: Yes (miscarriage) Hx Alcohol Use: No Hx Substance Use: No Hx Tobacco Use: No FmHx Family History: No diabetes Physical Exam Vitals Vital Signs Date Temp Pulse Resp B/P (MAP) Pulse Ox O2 O2 Flow FiO2 Time Delivery Rate 11/09/18 97.8 78 18 124/64 99 11:30 (84) Physical Exam GENERAL: Well-developed, well-nourished female. Appears in no acute distress. HEAD: Normocephalic, atraumatic. No deformities or ecchymosis. EYE: Pupils equal, round, and reactive to light. EOMs intact. No conjunctival erythema. No eye discharge. ENT: External ear without any masses or tenderness. Auditory canals clear bilaterally. TM visualized bilaterally, non-erythematous, non-bulging. Nasal mu cosa pink with no discharge. Oropharynx is erythematous without any tonsillar exudates. No tonsillar swelling. No uvula deviation. No kissing tonsils. NECK: Supple. No meningismus. Normal ROM of the neck. LUNG: Clear to auscultation bilaterally. No rhonchi, wheezing, rales or coarse breath sounds. HEART: Regular rate and rhythm. No murmurs, rubs or gallops. ABDOMEN: Soft, nontender, and nondistended. Positive bowel sounds in all four quadrants. No rebound tenderness, no guarding. (-) McBurney's point tenderness. No CVA tenderness. : deferred BACK: No midline tenderness. EXTREMITES: Equal pulses bilaterally. No peripheral clubbing, cyanosis or edema. No unilateral leg swelling. NEUROLOGIC: Alert and oriented to person, place and time. Moving all four extremities. 5/5 strength in all extremities. Normal speech. Steady gait. SKIN: Normal color. Warm and dry. No rashes or lesions. Procedures/MDM MEDICAL DECISION MAKING: This is a 22 year old female presents the ER for concerns of throat pain and fever x2 days. Per MARKELL report, this is the patient's 7th visit to the ER in 12 months. Vital signs were reviewed. Patient was afebrile. Patient was not hypoxic. physical exam findings are consistent with a viral pharyngitis. Low suspicion for pneumonia, meningitis, sinusitis, otitis externa, acute otitis media, strep pharyngitis, epiglottitis or peritonsillar abscess. Patient was nontoxic, [id number] prior to discharge. PRESCRIPTIONS: Ibuprofen, Cepacol throat lozenges DISCHARGE: At this time, patient is stable for discharge and outpatient management. Supportive therapies such as OTC throat lozenges, salt water gurgles, popsicles and jello discussed. I have instructed the patient to follow-up with his/her primary care physician in 1-2 days. I have instructed the patient to promptly return to the ER for any new or worsening symptoms including increased pain, swelling, fever, nausea, vomiting, weakness or difficulty breathing. The patient and/or family expressed understanding of and agreement with this plan. All questions were answered. Home care instructions were provided. Disclaimer: Inadvertent spelling and grammatical errors are likely due to EHR/dictation software use and do not reflect on the overall quality of patient care. Also, please note that the electronic time recorded on this note does not necessarily reflect the actual time of the patient encounter. Departure Diagnosis: Primary Impression: Pharyngitis Pharyngitis/tonsillitis etiology: unspecified etiology Qualified Codes: J02.9 - Acute pharyngitis, unspecified Condition: Fair Patient Instructions: Pharyngitis, Viral Referrals: [facility] YOU HAVE RECEIVED A MEDICAL SCREENING EXAM AND THE RESULTS INDICATE THAT YOU DO NOT HAVE A CONDITION THAT REQUIRES URGENT TREATMENT IN THE EMERGENCY DEPARTMENT. FURTHER EVALUATION AND TREATMENT OF YOUR CONDITION CAN WAIT UNTIL YOU ARE SEEN IN YOUR DOCTORS OFFICE WITHIN THE NEXT 1-2 DAYS. IT IS YOUR RESPONSIBILITY TO MAKE AN APPOINTMENT FOR FOLOW-UP CARE. IF YOU HAVE A PRIMARY DOCTOR --you should call your primary doctor and schedule an appointment IF YOU DO NOT HAVE A PRIMARY DOCTOR YOU CAN CALL OUR PHYSICIAN REFERRAL HOTLINE AT IF YOU CAN NOT AFFORD TO SEE A PHYSICIAN YOU CAN CHOSE FROM THE FOLLOWING [facility] [address] [facility]. [facility] [address] [facility]. [facility] [address] [facility] [facility] [address] [facility] [facility] [address] [facility]. [facility]. [address] [facility] [facility] YOU HAVE RECEIVED A MEDICAL SCREENING EXAM AND THE RESULTS INDICATE THAT YOU DO NOT HAVE A CONDITION THAT REQUIRES URGENT TREATMENT IN THE EMERGENCY DEPARTMENT. FURTHER EVALUATION AND TREATMENT OF YOUR CONDITION CAN WAIT UNTIL YOU ARE SEEN IN YOUR DOCTORS OFFICE WITHIN THE NEXT 1-2 DAYS. IT IS YOUR RESPONSIBILITY TO MAKE AN APPOINTMENT FOR FOLOW-UP CARE. IF YOU HAVE A PRIMARY DOCTOR --you should call your primary doctor and schedule and appointment IF YOU DO NOT HAVE A PRIMARY DOCTOR YOU CAN CALL OUR PHYSICIAN REFERRAL HOTLINE AT . IF YOU CAN NOT AFFORD TO SEE A PHYSICIAN YOU CAN CHOSE FROM THE FOLLOWING [facility] INSTITUTIONS: [facility] [address] [place] [address] [facility] [address] [place] [address] [facility] [address] [place] [address] Additional Instructions: Call your primary care doctor TOMORROW for an appointment during the next 1-2 days.See the doctor sooner or return here if your condition worsens before your appointment time. DELORES FONG PA-C November 09, 2018 12:01
== END 2018-11-09 12:50 | disposition home or self-care (01) ==
LOC: FTE 11:25
DX: J02.9 Acute pharyngitis, unspecified (principal)
CPT/HCPCS: 99282

== ENCOUNTER 2018-12-18 09:23 | Emergency (ER) | payer OTHER ==
[~2018-12-18] VITALS: Wt 84.1 kg
[~2018-12-18 09:23] MED LIST changes: +BENZ1LOZ52 MM; +IBUP-1542 PO
[2018-12-18 09:28] VITALS: BP 118/79; PULSE 76; RESP 20
[2018-12-18] MEDS ORDERED: IBUP-1542 PO (09:56)
[2018-12-18] MEDS ORDERED: IBUPROFEN 600 MG TAB PO ONE (10:00)
--- NOTE | 2018-12-18 10:13 | ERD ---
ER Documentation Chief Complaint Chief Complaint all over "joint pain", positive SATISH test 4 days ago HPI This is a 23-year-old female who presents with polyarticular joint pain and fatigue for the past 2 months. Patient states she has bilateral wrist pain, knee pain, and ankle pain. She states her ankles feel stiff in the mornings and progressively get better throughout the day. She saw her PCP and had a positive SATISH test about a week ago but has not yet returned to discuss them with her physician. She also had x-rays of her joints done that were normal. She is requesting something to help with her joint pain. She has not tried any medications thus far. Denies any fevers. Denies any swelling of the joints. Denies any other complaints. ROS All systems reviewed and are negative except as per history of present illness. Medications Home Meds Active Scripts Ibuprofen* (Motrin*) 600 Mg Tab, 600 MG PO Q6H PRN for PAIN AND OR ELEVATED TEMP, #30 TAB Prov:RONALD CERVANTES PA-C 12/18/18 Benzocaine/Menthol* (Cepacol* Sore Throat Lozenges) 1 Each Lozenge, 1 EACH MM q2h PRN for SORE THROAT, #20 LOZENGE Prov:DELORES FONG PA-C 11/09/18 Ibuprofen* (Motrin*) 600 Mg Tab, 600 MG PO Q6, #30 TAB Prov:DELORES FONGC 11/09/18 Cephalexin* (Keflex*) 500 Mg Capsule, 500 MG PO BID for UTI for 7 Days, CAP Prov:MARA OLIVER 08/11/18 Vit No.124/Iron/FA ( Vitamin Tablet) 1 Each Tablet, 1 EACH PO DAILY, #30 TAB Prov:JUAN DIEGO ESTRELLA 02/10/18 Allergies Allergies: Coded Allergies: No Known Allergy (Unverified , 07/18/18) PMhx/Soc History of Surgery: Yes (1Right Rib removed d/t small tumor) Anesthesia Reaction: No Hx Neurological Disorder: No Hx Respiratory Disorders: No Hx Cardiac Disorders: No Hx Psychiatric Problems: No Hx Miscellaneous Medical Probl: Yes (miscarriage, CA OF RIGHT RIB) Hx Alcohol Use: No Hx Substance Use: No Hx Tobacco Use: No Physical Exam Vitals Vital Signs Date Temp Pulse Resp B/P (MAP) Pulse Ox O2 O2 Flow FiO2 Time Delivery Rate 12/18/18 98.4 76 20 118/79 98 09:28 (92) Physical Exam Const: No acute distress Head: Atraumatic Eyes: Normal Conjunctiva ENT: Normal External Ears, Nose and Mouth. Neck: Full range of motion. No meningismus. Skin: No petechiae or rashes Back: No midline or flank tenderness Ext: Full range of motion of bilateral upper and lower extremities. No joint swelling, no warmth. No tenderness palpation. Neur: Awake and alert Psych: Normal Mood and Affect Results 24 hrs Current Medications Medications Dose Sig/Alonzo Start Time Status Last (Trade) Ordered Route PRN Stop Time Admin Dose Reason Admin Ibuprofen 600 mg ONCE ONCE 12/18/18 DC 12/18/18 (Motrin) PO 10:00 12/18/18 09:58 10:01 Procedures/MDM ED COURSE: The patient was given ibuprofen 600 mg The medication was well tolerated and the patient had market improvement in symptoms. The patient remained stable throughout ED course. MEDICAL DECISION MAKING: This is a 23-year-old female who presents with polyarticular joint pain. She had a positive SATISH test through primary care provider a few weeks ago. She has no fever here, her vital signs are normal. Physical exam is not consistent with septic arthritis or osteomyelitis. I discussed with her that positive SATISH is very nonspecific although lupus, rheumatoid arthritis, fibromyalgia are definitely on the differential. I discussed with her the importance of following up with her primary care provider for further evaluation. She was given a prescription for ibuprofen prior to discharge. Strict precautions were discussed. PRESCRIPTIONS: Ibuprofen SPECIALIST FOLLOW UP RECOMMENDED: None Patient has been advised to follow up with primary care in 1-2 days. Departure Diagnosis: Primary Impression: Joint pain Joint pain location: unspecified Qualified Codes: M25.50 - Pain in unspecified joint Condition: Stable Patient Instructions: Antinuclear Antibody Referrals: COMMUNITY CLINICS YOU HAVE RECEIVED A MEDICAL SCREENING EXAM AND THE RESULTS INDICATE THAT YOU DO NOT HAVE A CONDITION THAT REQUIRES URGENT TREATMENT IN THE EMERGENCY DEPARTMENT. FURTHER EVALUATION AND TREATMENT OF YOUR CONDITION CAN WAIT UNTIL YOU ARE SEEN IN YOUR DOCTORS OFFICE WITHIN THE NEXT 1-2 DAYS. IT IS YOUR RESPONSIBILITY TO MAKE AN APPOINTMENT FOR FOLOW-UP CARE. IF YOU HAVE A PRIMARY DOCTOR --you should call your primary doctor and schedule an appointment IF YOU DO NOT HAVE A PRIMARY DOCTOR YOU CAN CALL OUR PHYSICIAN REFERRAL HOTLINE AT IF YOU CAN NOT AFFORD TO SEE A PHYSICIAN YOU CAN CHOSE FROM THE FOLLOWING [facility] [address] [facility] [address] [facility] [address] [facility] [address] [facility] [address] [facility]. [facility] [address] [facility]. [facility] YOU HAVE RECEIVED A MEDICAL SCREENING EXAM AND THE RESULTS INDICATE THAT YOU DO NOT HAVE A CONDITION THAT REQUIRES URGENT TREATMENT IN THE EMERGENCY DEPARTMENT. FURTHER EVALUATION AND TREATMENT OF YOUR CONDITION CAN WAIT UNTIL YOU ARE SEEN IN YOUR DOCTORS OFFICE WITHIN THE NEXT 1-2 DAYS. IT IS YOUR RESPONSIBILITY TO MAKE AN APPOINTMENT FOR FOLOW-UP CARE. IF YOU HAVE A PRIMARY DOCTOR --you should call your primary doctor and schedule and appointment IF YOU DO NOT HAVE A PRIMARY DOCTOR YOU CAN CALL OUR PHYSICIAN REFERRAL HOTLINE AT . IF YOU CAN NOT AFFORD TO SEE A PHYSICIAN YOU CAN CHOSE FROM THE FOLLOWING [facility]: [facility] [address] [place] [address] [facility] [address] [place] [address] [facility] [address] [place] [address] Additional Instructions: Follow-up with your regular doctor when he/she gets back. Take the ibuprofen as needed for any joint pain. Call your primary care doctor TOMORROW for an appointment during the next 2-4 days and bring all the information and medications prescribed. If the symptoms get worse and your provider is unavailable, return to the Emergency Department immediately. RONALD CERVANTES PA-C Dec 18, 2018 10:13
== END 2018-12-18 10:16 | disposition home or self-care (01) ==
LOC: FTE 09:23
DX: M25.531 Pain in right wrist (principal); M25.532 Pain in left wrist; M25.562 Pain in left knee; M25.561 Pain in right knee; M25.571 Pain in right ankle and joints of right foot; M25.572 Pain in left ankle and joints of left foot; Z85.830 Personal history of malignant neoplasm of bone
CPT/HCPCS: Z7502; Z7610; 99282